=== PATIENT | female | born 1975 | race Caucasian/White ===

== ENCOUNTER 2018-03-01 06:55 | Day surgery (SDC) | payer MEDICAID ==
[2018-02-24 11:23] VITALS: BMI 29.0
[2018-03-01] MEDS ORDERED: ceFAZolin 1 gm in NS 2 GM/200 ML BAG IVPB ONE (08:00)
[2018-03-01] MEDS ORDERED: Midazolam 2 MG/2 ML VIAL ONE (08:02)
[2018-03-01] MEDS ORDERED: Propofol 10 mg/ml Inj (20 ML) ONE (08:02)
[2018-03-01] MEDS ORDERED: HYDROmorphone 0.5 mg/0.5 ml ISec IVP PRN (08:59)
--- NOTE | 2018-03-01 09:05 | PCM.SURG1 ---
Surgeon's Initial Post Op Note - Surgeon's Notes Surgeon: DR ECHEVERRIA Body Maker Machine Setter: NONE Type of Anesthesia: General Mask Anesthesia Administered By: DR KAY Pre-Operative Diagnosis: 42 YR WITH MENORRHAGIA/FIBROID UTERUS Operative Findings: SEE HE OP REORT Post-Operative Diagnosis: SAME Operation Performed: MYSURE/D&C, HYSTERSCOPY Specimen/Specimens Removed: ECC. EMC. SUBMUSAL FIBROID Estimated Blood Loss: EBL {In ML}: 80 Blood Products Given: N/A Drains Used: No Drains Post-Op Condition: Good Date of Surgery/Procedure: 03/01/18 Time of Surgery/Procedure: 09:00
[2018-03-01 11:34] VITALS: BP 114/73; PULSE 71; RESP 71; TEMP 97.6; O2SAT 99
--- NOTE | 2018-03-01 20:45 | OP ---
PROCEDURE DATE: 03/01/2018 PREOPERATIVE DIAGNOSES: A 42-year-old female 2, para 2 with menorrhagia, submucosal fibroid. POSTOPERATIVE DIAGNOSES: A 42-year-old female 2, para 2 with menorrhagia, submucosal fibroid. PROCEDURE: MyoSure, dilatation and curettage. SURGEON: Ventura Antonio MD. COMPLAINT CLERK: None. TYPE OF ANESTHESIA: General. ANESTHESIA ADMINISTERED BY: Dr. Renee. COMPLICATIONS: None. DESCRIPTION OF PROCEDURE: After informed consent was obtained, the patient was brought to the operating room, placed on the table where general anesthesia was given. The patient was prepped and draped in the normal sterile fashion. Examination found the uterus to be 6 weeks' size. No pelvic or adnexal masses. After that, gentle dilation of the cervix was done. Hysteroscope was then introduced and found the polyp to be on the anterior wall of the uterus, submucosal fibroid and the decision was made to use the MyoSure. MyoSure was used to take out the fibroid. Then after sharp curettage of the endometrium was done, specimen was sent to Pathology. Then ECC was sent to Pathology. . The patient tolerated the procedure well. Lap, sponge, and instrument counts were correct x2. Ventura Antonio MD
== END 2018-03-01 11:13 | disposition home or self-care (01) ==
LOC: C.SDS 06:55
PROVIDERS: ATTEND Obstetrics & Gynecology
DX: D25.0 Submucous leiomyoma of uterus (principal); N92.0 Excessive and frequent menstruation with regular cycle
CPT/HCPCS: 58558; 88305; J0131; J0690; J1100; J1170; J1885; J2001; J2250; J2405; J2704; J3010

== ENCOUNTER 2018-04-14 06:02 | Inpatient (IN) | payer MEDICAID ==
[2018-02-24 11:23] VITALS: BMI 29.0
[2018-04-14] MEDS ORDERED: ceFAZolin IV 1 gm in Dextrose 0 GM/0 ML BAG IVPB ONE (07:18)
[2018-04-14] MEDS ORDERED: Bacitracin Ointment 30 GM TUBE ONE (07:18)
[2018-04-14] MEDS ORDERED: Propofol 10 mg/ml Inj (20 ML) ONE (07:43)
[2018-04-14] MEDS ORDERED: Midazolam 2 MG/2 ML VIAL ONE (07:43)
[2018-04-14] MEDS ORDERED: ceFAZolin 1 gm in NS 2 GM/200 ML BAG IVPB ONE (07:45)
[2018-04-14] MEDS ORDERED: Neostigmine Methylsulfate 3mg/3ml Syringe IV ONE (09:30)
[2018-04-14] MEDS ORDERED: Morphine 4 MG/ML VIAL ONE (09:49)
--- NOTE | 2018-04-14 09:54 | PCM.SURG1 ---
Surgeon's Initial Post Op Note - Surgeon's Notes Surgeon: dr villalobos Operations Support Coordinator: dr arzola/wilda Type of Anesthesia: General Endo, Moderate Sedation{RN} Pre-Operative Diagnosis: 42 yr with aub and failed surgical anna Operative Findings: see the op reprt Post-Operative Diagnosis: same with fibroid uterus Operation Performed: ex lap total hystrectomy/b/l salpingectomy Specimen/Specimens Removed: uterus. ceervix. b/k tubes Estimated Blood Loss: EBL {In ML}: 200 Blood Products Given: N/A Drains Used: No Drains Post-Op Condition: Good Date of Surgery/Procedure: 04/14/18 Time of Surgery/Procedure: 10:00
[2018-04-14] MEDS ORDERED: HYDROmorphone 0.5 mg/0.5 ml ISec IVP PRN (10:00)
[2018-04-14] MEDS ORDERED: Lactated Ringer's 1,000 ML IV SCH ×2 (10:00→11:45)
[2018-04-14] MEDS ORDERED: Lactated Ringer's 1,000 ML IV ONE (10:59)
[2018-04-14] MEDS ORDERED: Morphine Monoject Barrel PCA 1mg/ml IV PRN (13:19)
[2018-04-14] MEDS: Simethicone 80 mg Chewtab PO SCH ×3 (14:05→23:10)
[2018-04-14] MEDS: Oxycodone/Acetaminophen 5/325 mg Tab PO PRN ×2 (16:36→23:03)
[2018-04-15] MEDS: Oxycodone/Acetaminophen 5/325 mg Tab PO PRN ×4 (04:18→18:57)
--- NOTE | 2018-04-15 06:08 | OP ---
PROCEDURE DATE: 04/14/2018 PREOPERATIVE DIAGNOSIS: A 42-year-old 2, para 2 with abnormal uterine bleeding, failed medical management, surgical management. POSTOPERATIVE DIAGNOSIS: A 42-year-old 2, para 2 with abnormal uterine bleeding, failed medical management, surgical management. SURGEON: Ventura Antonio MD TIRE BLADDER MAKER: James Desai MD; and WINNIE Cormier ANESTHESIOLOGIST: Dr. Nash. ANESTHESIA: General anesthesia. COMPLICATIONS: None. ESTIMATED BLOOD LOSS: 200 mL. DESCRIPTION OF PROCEDURE: After informed consent was obtained, the patient was brought to the operating room, placed on the table, where spinal anesthesia was given. Once the anesthesia was given, the patient was prepped and draped in normal sterile fashion. Andrade catheter was inserted under sterile condition. After that, the patient's belly was prepped and draped and skin incision was made with a knife, subcutaneous cut with a Bovie and the fascia was then excised on both the sides using curved Don scissors. The fascia was from the site of the umbilicus and then at the site of the pubic bone. Rectus muscle was . The peritoneum was incised and we went into the abdominal cavity. The uterus was exteriorized and found multiple fibroid uterus. After that, wet laps for the bowels. After that, the decision was to do a total hysterectomy and the round ligament on the left that was taken with LigaSure. The patient is 42 years old. The plan is to take the ovaries and after that the window was made on the broad ligament and then the right ovarian ligament was taken out. Then the same thing was done on the left side. After that, the bladder flap was created on both the sites. After that uterine artery was taken with 2 Kochers ____ on the right side so that multiple white cells were taken out. The cardinal ligament were taken with multiple sites. After that ____. The bladder blade was pulled back down with ____. It was hemostatic. No bleeding. Then the incision was made with the knife and the uterus and the cervix were taken out. The [place] and it was closed with 2-0 Vicryl in an interrupted fashion. Both ovaries were then found to be hemostatic. ____. Both ovaries were hemostatic. No bleeding. ____ hemostatic. After that, FloSeal was placed and found to be hemostatic. No bleeding. After that, the patient was awakened ____. All the laps were removed. The fascia was then closed using 1-0 Vicryl in running interlocking fashion. Muscle was closed in interrupted fashion. Skin was closed using 0 Monocryl on straight needle. The patient tolerated the procedure well. Lap, sponge, and instrument counts were correct x2. Ventura Antonio MD
[2018-04-15 08:50] LABS: HEMOGLOBIN 9.3 g/dL (11.0-16.0); MEAN CELL VOLUME 77.6 fL (81.0-99.0); MEAN CORPUSCULAR HEMOGLOBIN 25.1 pg (27.0-31.0); MEAN CORPUSCULAR HGB CONC 32.3 g/dL (33.0-37.0); RBC 3.73 Mil/uL (3.80-5.20); WHITE BLOOD COUNT 8.7 K/uL (4.8-10.8)
[2018-04-15] MEDS ORDERED: Bisacodyl 5mg EC Tab PO ONE (09:51)
[2018-04-15] MEDS: Simethicone 80 mg Chewtab PO SCH ×4 (10:00→21:11)
[2018-04-15] MEDS: Prenatal Multivit/Folic Acid/Iron Tab PO SCH (10:47)
--- NOTE | 2018-04-15 16:10 | CP.PCM.PN ---
Subjective - Date & Time of Evaluation Date of Evaluation: 04/15/18 Time of Evaluation: 16:05 - Subjective Subjective: Pt is a 42yo female who is POD#1 after an ex lap total hysterectomy with bilateral salpingectomy. Pt states she has been walking and drinking water. Reports mild vaginal bleeding which is improving. Pt denies passing gas and denies having a bowel movement. Pt states motrin and percocet have been controlling the pain well. Pt has no new complaints at this time. Objective - Vital Signs/Intake and Output Vital Signs (last 24 hours): Temp Pulse Resp BP Pulse Ox 97.3 F L 85 18 123/79 98 04/15/18 08:45 04/15/18 08:45 04/15/18 08:45 04/15/18 08:45 04/15/18 08:45 Intake and Output: 04/15/18 04/15/18 06:59 18:59 Intake Total 1350 1600 Output Total 350 600 Balance 1000 1000 - Medications Medications: Current Medications Docusate Sodium (Colace) 100 mg PO BID [facility] Last Admin: 04/15/18 10:01 Dose: 100 mg Lactated Ringer's (Lactated Ringer's) 1,000 mls @ 125 mls/hr IV .Q8H [facility] Last Admin: 04/14/18 23:47 Dose: 125 mls/hr Ibuprofen (Motrin Tab) 600 mg PO Q6H PRN PRN Reason: Pain, Mild (1-3) Last Admin: 04/15/18 06:40 Dose: 600 mg Ondansetron HCl (Zofran Inj) 4 mg IVP Q4 PRN PRN Reason: Nausea/Vomiting Last Admin: 04/15/18 09:57 Dose: 4 mg Oxycodone/Acetaminophen (Percocet 5/325 Mg Tab) 1 tab PO Q4H PRN PRN Reason: Pain, moderate (4-7) Stop: 04/17/18 09:51 Last Admin: 04/14/18 16:36 Dose: 1 tab Oxycodone/Acetaminophen (Percocet 5/325 Mg Tab) 2 tab PO Q4H PRN PRN Reason: Pain, severe (8-10) Stop: 04/17/18 09:51 Last Admin: 04/15/18 10:47 Dose: 2 tab Multivit/Folic Acid/Iron () 1 tab PO DAILY [facility] Last Admin: 04/15/18 10:47 Dose: 1 tab Simethicone (Mylicon Chew Tab) 80 mg PO QID [facility] Last Admin: 04/15/18 10:00 Dose: 80 mg - Labs Labs: 04/15/18 08:45 - Constitutional Appears: No Acute Distress - Head Exam Head Exam: ATRAUMATIC, NORMAL INSPECTION, NORMOCEPHALIC - Eye Exam Eye Exam: EOMI - ENT Exam ENT Exam: Mucous Membranes Moist - Neck Exam Neck Exam: Full ROM - Respiratory Exam Respiratory Exam: Clear to Ausculation Bilateral, NORMAL BREATHING PATTERN. absent: Accessory Muscle Use, Wheezes - Cardiovascular Exam Cardiovascular Exam: +S1, +S2. absent: Diastolic murmur, Irregular Rhythm - GI/Abdominal Exam GI & Abdominal Exam: Soft, Normal Bowel Sounds. absent: Tenderness - Extremities Exam Extremities Exam: Full ROM. absent: Pedal Edema - Neurological Exam Neurological Exam: Alert, Awake, Oriented x3 - Psychiatric Exam Psychiatric exam: Normal Affect, Normal Mood - Skin Skin Exam: Dry, Normal Color, Warm Assessment and Plan - Assessment and Plan (Free Text) Assessment: Pt is a 42yo status post ex lap total hystrectomy/b/l salpingectomy Plan: Status post ex lap total hystrectomy/b/l salpingectomy - encourage to walk - encourage to continue drinking water - continue motrin and percocet for pain control Pt seen and examined Jason Bo PGY1, Internal Medicine Resident
[2018-04-16] MEDS: Oxycodone/Acetaminophen 5/325 mg Tab PO PRN ×3 (00:57→23:04)
[2018-04-16 09:34] VITALS: RESP 18; O2SAT 100
[2018-04-16] MEDS: Simethicone 80 mg Chewtab PO SCH ×3 (10:14→21:46)
[2018-04-16] MEDS: Prenatal Multivit/Folic Acid/Iron Tab PO SCH (10:14)
[2018-04-17 09:41] VITALS: BP 119/85; PULSE 77; TEMP 98
[2018-04-17] MEDS: Prenatal Multivit/Folic Acid/Iron Tab PO SCH (09:56)
[2018-04-17] MEDS: Simethicone 80 mg Chewtab PO SCH (09:56)
--- NOTE | 2018-04-17 10:10 | CP.PCM.PN ---
Subjective - Date & Time of Evaluation Date of Evaluation: 04/17/18 Time of Evaluation: 10:08 - Subjective Subjective: no complaints tolerating diet, passing flatus, voiding spontaneously pain well controlled Objective - Vital Signs/Intake and Output Vital Signs (last 24 hours): Temp Pulse Resp BP Pulse Ox 98.0 F 77 18 119/85 100 04/17/18 08:00 04/17/18 08:00 04/17/18 08:00 04/17/18 08:00 04/17/18 08:00 - Medications Medications: Current Medications Docusate Sodium (Colace) 100 mg PO BID [facility] Last Admin: 04/17/18 09:43 Dose: 100 mg Lactated Ringer's (Lactated Ringer's) 1,000 mls @ 125 mls/hr IV .Q8H [facility] Last Admin: 04/14/18 23:47 Dose: 125 mls/hr Ibuprofen (Motrin Tab) 600 mg PO Q6H PRN PRN Reason: Pain, Mild (1-3) Last Admin: 04/17/18 09:57 Dose: 600 mg Influenza Virus Vaccine (Fluzone Quad [id number]) 60 mcg IM .ONCE ONE Stop: 04/17/18 10:16 Ondansetron HCl (Zofran Inj) 4 mg IVP Q4 PRN PRN Reason: Nausea/Vomiting Last Admin: 04/16/18 01:07 Dose: 4 mg Multivit/Folic Acid/Iron () 1 tab PO DAILY [facility] Last Admin: 04/17/18 09:56 Dose: 1 tab Simethicone (Mylicon Chew Tab) 80 mg PO QID [facility] Last Admin: 04/17/18 09:56 Dose: 80 mg - Labs Labs: 04/15/18 08:45 - GI/Abdominal Exam Additional comments: abdomen is soft, NTND, +BS, incision in tact with steristrips, healing well, no erythema
[2018-04-17] MEDS ORDERED: Influenza Vaccine 60 MCG/0.5 ML SYR (3 yr & up) IM ONE (10:15)
--- NOTE | 2018-04-17 10:22 | CP.PCM.PN ---
Subjective - Date & Time of Evaluation Date of Evaluation: 04/17/18 Time of Evaluation: 10:24 - Subjective Subjective: see previous note Objective - Vital Signs/Intake and Output Vital Signs (last 24 hours): Temp Pulse Resp BP Pulse Ox 98.0 F 77 18 119/85 100 04/17/18 08:00 04/17/18 08:00 04/17/18 08:00 04/17/18 08:00 04/17/18 08:00 - Medications Medications: Current Medications Docusate Sodium (Colace) 100 mg PO BID [facility] Last Admin: 04/17/18 09:43 Dose: 100 mg Lactated Ringer's (Lactated Ringer's) 1,000 mls @ 125 mls/hr IV .Q8H [facility] Last Admin: 04/14/18 23:47 Dose: 125 mls/hr Ibuprofen (Motrin Tab) 600 mg PO Q6H PRN PRN Reason: Pain, Mild (1-3) Last Admin: 04/17/18 09:57 Dose: 600 mg Ondansetron HCl (Zofran Inj) 4 mg IVP Q4 PRN PRN Reason: Nausea/Vomiting Last Admin: 04/16/18 01:07 Dose: 4 mg Multivit/Folic Acid/Iron () 1 tab PO DAILY [facility] Last Admin: 04/17/18 09:56 Dose: 1 tab Simethicone (Mylicon Chew Tab) 80 mg PO QID [facility] Last Admin: 04/17/18 09:56 Dose: 80 mg - Labs Labs: 04/15/18 08:45 Assessment and Plan - Assessment and Plan (Free Text) Assessment: s/p abdominal hysterectomy vitals stable, afebrile regular diet tolerating + bowel function pain well controlled encouraged ambulation, hydration and pelvic rest upon discharge plan to DC and follow up as outpatient Dr. Ana Maria Hall laborist solar field installation crew member, patient seen on behalf of Dr. Ventura Antonio
== END 2018-04-17 10:25 | disposition home or self-care (01) | DRG 359 ==
LOC: C.SDS 06:02 → C.4M 09:52
PROVIDERS: ADMIT Obstetrics & Gynecology; ATTEND Obstetrics & Gynecology
PROC: 0UT74ZZ Resection of Bilateral Fallopian Tubes, Percutaneous Endoscopic Approach (ICD-10-PCS; 2018-04-14)
PROC: 0UT94ZZ Resection of Uterus, Percutaneous Endoscopic Approach (ICD-10-PCS; principal; 2018-04-14 07:30)
DX: D25.1 Intramural leiomyoma of uterus (principal); N80.0 Endometriosis of uterus; N93.9 Abnormal uterine and vaginal bleeding, unspecified; D25.0 Submucous leiomyoma of uterus